=== PATIENT | female | born 1950 | race Caucasian/White ===

== ENCOUNTER 2022-05-26 10:26 | Emergency (ER) | payer OTHER ==
[2022-05-26 10:30] VITALS: BMI 27.4
[2022-05-26] MEDS ORDERED: BEBTELOVIMAB (EUA) 175 MG/2 ML VIAL IVPUSH ONE (10:31)
[2022-05-26 13:01] VITALS: BP 121/66; PULSE 93; RESP 20; TEMP 98
== END 2022-05-26 13:03 | disposition home or self-care (01) ==
LOC: JCOVINFU 10:26 → JER 10:26 → JCOVINFU 13:03
DX: U07.1 COVID-19 (principal)
CPT/HCPCS: 96365; 99283-25; M0222; Q0222